=== PATIENT | female | born 1990 | race Two or more races ===

== ENCOUNTER 2024-03-05 07:05 | Emergency (ER) | payer MEDICAID, OTHER ==
[~2024-03-05] VITALS: Ht 165.1 cm; Wt 50.0 kg
[2024-03-05 08:50] VITALS: BP 120/56; PULSE 64; RESP 18; TEMP 98.1; O2SAT 99
== END 2024-03-05 10:11 | disposition home or self-care (01) ==
LOC: ER 07:05
DX: O03.9 Complete or unspecified spontaneous abortion without complication (principal); R10.2 Pelvic and perineal pain; Z3A.01 Less than 8 weeks gestation of pregnancy
CPT/HCPCS: 36415; 76801; 76817; 84702